=== PATIENT | male | born 1945 ===

== ENCOUNTER → 2018-03-20 | Outpatient (CLI) | payer OTHER ==
[~2018-03-20] MED LIST: APIX5TAB PO; ASPI81TA50 PO; ATORVASTATIN CA80 MG PO; CARV12.52 PO; CETI10TA16 PO; CHOL10003 PO; CYCL5TAB PO; DEXT1TAB17 PO; FINA5TAB4 PO; INSU100I13 SQ; LOSA50TA7 PO; MECL25TA3 PO; METF500T16 PO; SILD20TA2 PO; TRAM50TA PO; VENL75CA6 PO
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
== END | disposition home or self-care (01) ==
LOC: PNCL 09:32
PROVIDERS: ATTEND Anesthesiology
DX: M79.605 Pain in left leg (principal); M79.604 Pain in right leg; M19.90 Unspecified osteoarthritis, unspecified site; E66.9 Obesity, unspecified; G47.30 Sleep apnea, unspecified; I25.10 Atherosclerotic heart disease of native coronary artery without angina pectoris; I48.91 Unspecified atrial fibrillation; I12.9 Hypertensive chronic kidney disease with stage 1 through stage 4 chronic kidney disease, or unspecified chronic kidney disease; E11.22 Type 2 diabetes mellitus with diabetic chronic kidney disease; N18.2 Chronic kidney disease, stage 2 (mild); Z87.891 Personal history of nicotine dependence
CPT/HCPCS: 99214

== ENCOUNTER → 2018-04-15 | Outpatient (CLI) | payer OTHER ==
[~2018-04-15] MED LIST changes: +IOHEXOL 180 MG/ML 10 ML VIAL. ONE; +LIDOCAINE 2% PF 2ML VIAL. ONE; +methylPREDNISolone ACETATE 40 MG/ML VIAL. ONE; +methylPREDNISolone ACETATE 80 MG/ML VIAL. ONE
--- NOTE | 2018-04-16 04:03 | PAIN ---
DATE OF SERVICE: 04/15/2018 HISTORY OF PRESENT ILLNESS: The patient is a 72-year-old male who returns for followup status post evaluation and clearance to hold his Eliquis, has been off it for 3 days now and returns wishing to proceed. The patient reports pain in the low back into the right greater than left lower extremities, unchanged. No new motor or sensory deficits, no new bowel or bladder incontinence. Again, the patient reports pain is a 6 on a scale of 10, 6-7 at its worst, 5 on average, and 3 at its least and is 5 today. The patient reports it is aching, dull, shooting, burning, stabbing, sometimes cramping as well. The patient reports no new motor or sensory deficits, better with sitting or lying down, worse with standing, walking, does not awaken him from sleep at night. PHYSICAL EXAMINATION: VITAL SIGNS: The patient's blood pressure 147/83, pulse 96, respirations 18, temperature 98.1 degrees Fahrenheit, height is 5 feet 8 inches, weight is 214 pounds. GENERAL: The patient is awake, alert, oriented, appropriate, very pleasant demeanor. HEENT: Shows normocephalic, atraumatic. Extraocular movements intact and symmetrical. Oral cavity: Mucous membranes are moist and pink. Dentition is intact. NECK: Shows anterior throat supple without palpable lymphadenopathy noted. Swallow reflex symmetrical. CHEST: Shows normal on inspection. Breath sounds clear to auscultation bilaterally. HEART: Shows S1, S2 clear. No murmurs auscultated. ABDOMEN: Soft, nontender, nondistended. No palpable organomegaly is noted. No rebound or guarding demonstrated. BACK: Shows spine grossly in the midline, normal appearing thoracic kyphosis and mild lumbar lordotic curvature. Lumbar paraspinous musculature is symmetrical on inspection. On palpation shows some moderate tenderness with palpation, mainly in the mid and lower distribution of paraspinous muscles, but without radiation, without trigger points, no difficulty with rotational motion, extension and flexion of lumbar spine. No tenderness over the sacrum or sacroiliac regions or over the spinous processes. EXTREMITIES: Lower extremities show deep tendon reflexes 1+ in the patellar tendons. NEUROLOGY: Motor exam is strong with 5/5 with dorsiflexion, extension, quadriceps, and hamstring flexion are symmetrical. Peripheral pulses are 1+, posterior tibial. No peripheral edema is noted. ASSESSMENT AND PLAN: Options were discussed with the patient. The patient's old chart was reviewed, as well as his current medication regimen updated. Current review of systems updated today as well. We will proceed with a lumbar epidural steroid injection today with fluoroscopic guidance. Risks were again discussed including, but not limited to bleeding, infection, possibility of epidural hematoma and subsequent neurological compromise, dural puncture, headaches, spinal cord and/or nerve damage, side effects of steroid medication and poor results regarding pain control. The patient understands and wished to proceed. The patient will return to clinic in approximately 2 weeks for followup, was counseled on return appointment, activity level and side effects to be aware of. DIAGNOSES: Lumbar radiculopathy with lumbar degenerative disk disease, lumbar spinal stenosis. PROCEDURE: Lumbar epidural steroid injection, translaminar approach at the L5-S1 level using C-arm fluoroscopic guidance under sterile prep and drape using local anesthetic. MEDICATION INJECTED: A total of 120 mg Depo-Medrol plus 10 mL of preservative-free normal saline and 2 mL of Isovue for contrast. CONDITION AT DISCHARGE: Stable. The patient tolerated procedure well, had no complications. TEGAN CASH MD DR: PATRICIA/daniele JOB#: [id number] / [id number]
== END | disposition home or self-care (01) ==
LOC: PNCL 13:53
PROVIDERS: ATTEND Anesthesiology
DX: M51.16 Intervertebral disc disorders with radiculopathy, lumbar region (principal); M48.061 Spinal stenosis, lumbar region without neurogenic claudication; Z88.8 Allergy status to other drugs, medicaments and biological substances
CPT/HCPCS: 62323; J1030; J1040; J2001; Q9965